=== PATIENT | male | born 1960 | race Caucasian/White ===

== ENCOUNTER → 2023-01-29 09:39 | Outpatient (CLI) | payer BC, SELFPAY ==
--- NOTE | 2023-01-29 | DI.RAD.S_ITS ---
PROCEDURE: XR KNEE RT 3V INDICATIONS: Pain in right knee TECHNIQUE: 3 views of the knee were acquired. COMPARISON: None. FINDINGS: Bones: No fractures or dislocations. No suspicious bony lesions. Soft tissues: Possible small joint effusion. No suspicious soft tissue calcifications. IMPRESSION: No acute osseous abnormality. Possible small nonspecific joint effusion. If symptoms persist, follow-up radiographs and/or CT or MRI may be helpful for further evaluation. Dictated by: Luca Dumont M.D. on 01/29/2023 at 11:55 Approved by: Luca Dumont M.D. on 01/29/2023 at 11:56
== END ==
PROVIDERS: PCP Physician Assistant; Referring Provider Physician Assistant; Visit Provider Physician Assistant
DX: M25.561 Pain in right knee (principal)
CPT/HCPCS: 73562

== ENCOUNTER 2025-03-30 11:08 | Day surgery (SDC) | payer BC, SELFPAY ==
[2025-03-30 11:25] VITALS: BP 135/84; PULSE 78; RESP 16; TEMP 36.1; O2SAT 98
[2025-03-30] MEDS: LACTATED RINGERS 1,000 ML 42 ML IV (11:36)
--- NOTE | 2025-03-30 11:47 | PM.HP.IH.1 ---
History of Present Illness History of Present Illness Date Patient Seen: 03/30/25 Chief complaint: SDC Narrative: 5 year follow-up colonoscopy for history of colon polyps. PFSH Social History Smoking Status: Never smoker alcohol intake: current Meds Home Medications and Allergies Home Medications ?Medication ?Instructions ?Recorded ?Confirmed ?Type dapagliflozin propanediol 5 mg 5 mg PO DAILY 03/30/25 03/30/25 History tablet (Farxiga) metformin 500 mg tablet,extended 1,000 mg PO BID 03/30/25 03/30/25 History release 24 hr rosuvastatin 20 mg tablet 20 mg PO ONCE PM 03/30/25 03/30/25 History tirzepatide 2.5 mg/0.5 mL 2.5 mg SUBCUT 03/30/25 History subcutaneous pen injector (Alicia) Allergies Allergy/AdvReac Type Severity Reaction Status Date / Time No Known Drug Allergies Allergy Verified 03/30/25 11:18 Exam Vital Signs (past 8 hours): - 03/30/25 11:25 Temperature 96.9 F L Pulse Rate 78 Respiratory Rate 16 Blood Pressure 135/84 Pulse Oximetry 98 Oxygen Delivery Method Room Air Oxygen Delivery Method Room Air Narrative Exam Narrative: Oropharynx free of lesion Objective Labs Labs: Laboratory Results - last 24 hr 03/30/25 11:33 POC Whole Bld Glucose 98 Assessment & Plan Assessment & Plan narrative: History of colon polyps need for follow-up colonoscopy for screening. Risks, benefits, alternatives have been explained. Time-Based Coding :: [TOTAL MINUTES] spent with patient and on the chart (including review of chart, obtaining history, exam, reviewing outside data, placing orders, documenting exam and treatment plan, and counseling patient) on [DATE]. [employer] Developer Document charge(s): No
--- NOTE | 2025-03-30 11:48 | PM.OP.COLON ---
Operative Date/Time/Diagnoses Date of procedure: 03/30/25 Time of procedure: 12:27 Pre-op diagnosis: See indication and findings Post-op diagnosis: same Procedure & Clinicians Study performed: Colonoscopy Same procedure(s) as scheduled: Yes Indications: History of colon polyps Surgeon: Mady Fried Anesthesia Type: Other Procedure Notes Procedure in detail: After informed consent was obtained the patient was placed in left lateral decubitus position. The video colonoscope was introduced the rectum slowly advanced cecum. Preparation was good. On slow withdrawal mucosa was carefully examined. The scope was removed. The patient tolerated procedure well. Blood loss none Complications none Sedation mac Findings 1. Normal colonoscopy to cecum Patient should have follow-up colonoscopy in 5 years
[2025-03-30 12:28] VITALS: BP 105/70; PULSE 77; RESP 18; TEMP 36.1; O2SAT 97
[2025-03-30 12:30] VITALS: BP 106/69; PULSE 82; RESP 19; O2SAT 99
[2025-03-30 12:36] VITALS: BP 113/79; PULSE 95; RESP 22; O2SAT 97
== END 2025-03-30 12:48 | disposition home or self-care (01) ==
PROVIDERS: PCP Physician Assistant; Referring Provider Internal Medicine Gastroenterology; Visit Provider Internal Medicine Gastroenterology
PROC: 0DJD8ZZ Inspection of Lower Intestinal Tract, Via Natural or Artificial Opening Endoscopic (ICD-10-PCS; CPT 45378; principal; 2025-03-30 12:30)
DX: Z12.11 Encounter for screening for malignant neoplasm of colon (principal); Z86.0100 Personal history of colon polyps, unspecified
CPT/HCPCS: 45378; 82962; J2405; J2704